=== PATIENT | male | born 1955 | race Caucasian/White ===

== ENCOUNTER 2022-07-01 13:28 | Inpatient (IN) | payer MEDICARE, SELFPAY ==
[2022-07-01] MEDS ORDERED: Ondansetron ODT 4 MG TAB PO PRN (19:15)
[2022-07-01] MEDS ORDERED: Lorazepam 2 MG/ML VIAL IM PRN (19:15)
[2022-07-01] MEDS ORDERED: Electrolyte Replacement Protocol 1 EACH FS SCH (19:15)
[2022-07-01] MEDS ORDERED: Lorazepam 1 MG TAB PO PRN (19:15)
[2022-07-01] MEDS ORDERED: Acetaminophen 325 MG TAB PO PRN (19:16)
[2022-07-01] MEDS ORDERED: HYDROcodone/Acetaminophen 5/325 mg Tablet PO PRN (19:16)
[2022-07-01] MEDS ORDERED: Nicotine 21 MG PATCH TD SCH (19:30)
[2022-07-01] MEDS: Thiamine HCl 200 MG/2 ML VIAL SLOW IVP SCH (20:16)
[2022-07-01] MEDS: Lorazepam 1 MG TAB PO SCH (20:20)
[2022-07-01] MEDS: Famotidine 20 MG TAB PO SCH (20:20)
[2022-07-01 20:33] LABS: #Eosinphils 0.1 thou/uL (0.0-0.7); #Lymphocytes 1.9 thou/uL (1.20-3.40); #Monocytes 0.6 thou/uL (0.11-0.59); #Neutrophils 4.1 thou/uL (1.40-6.50); %Basophils 0.5 % (0.0-1.0); %Eosinophils 1.3 % (0.0-10.0); %Lymphocytes 27.9 % (21.0-51.0); %Monocytes 8.7 % (0.0-10.0); %Neutrophils 61.6 % (42.0-75.0); Hemoglobin 13.4 g/dL (14.0-18.0); Mean Corpuscular HGB CONC 33.7 g/dL (32.0-36.0); Mean Corpuscular Hemoglobin 33.5 pg (27.0-31.0); Mean Corpuscular Volume 99.5 fl (78.0-98.0); Mean Platelet Volume 7.4 fL (7.4-10.4); Platelet Count 198 10x3/uL (130-400); RBC Distribution Width 12.3 % (11.5-14.5); Red Blood Cell (RBC) Count 3.98 mill/uL (4.70-6.10); White Blood Cell (WBC) Count 6.7 10x3/uL (4.8-10.8)
[2022-07-01 20:46] LABS: ALT (SGPT) 8 U/L (8-55); AST (SGOT) 11 U/L (5-34); Albumin 3.9 g/dL (3.4-4.8); Alkaline Phosphatase 44 U/L (40-110); Anion Gap 11 mmol/L (10-20); BUN (Urea Nitrogen) 14 mg/dL (8.4-25.7); Bilirubin, Direct 0.5 mg/dL (0.1-0.3); Bilirubin, Total 1.5 mg/dL (0.2-1.2); Calc. Creatinine Clearance 0 mL/min (70-130); Calcium 9.1 mg/dL (7.8-10.44); Carbon Dioxide 25 mmol/L (23-31); Chloride 103 mmol/L (98-107); Estimated GFR 91; Globulin 2.6 g/dL (2.4-3.5); Glucose 167 mg/dL (80-115); Magnesium 1.9 mg/dL (1.6-2.6); Phosphorus 3.3 mg/dL (2.3-4.7); Potassium 3.8 mmol/L (3.5-5.1); Protein, Total 6.5 g/dL (5.8-8.1); Sodium 135 mmol/L (136-145)
[2022-07-01] MEDS ORDERED: Amlodipine 5 MG TAB PO SCH (21:00)
[2022-07-01] MEDS ORDERED: Atorvastatin Calcium 20 MG TAB PO SCH (21:00)
[2022-07-01 21:25] VITALS: BMI 19.8
[2022-07-01 22:49] LABS: Syphilis Antibody Nonreactive (Nonreactive); Syphilis Antibody Index 0.06 S/CO (<1.00 Non-Reactive)
[2022-07-02] MEDS: Lorazepam 1 MG TAB PO SCH ×3 (01:59→13:13)
[2022-07-02 05:32] LABS: #Eosinphils 0.1 thou/uL (0.0-0.7); #Lymphocytes 1.6 thou/uL (1.20-3.40); #Monocytes 0.6 thou/uL (0.11-0.59); #Neutrophils 3.7 thou/uL (1.40-6.50); %Basophils 0.6 % (0.0-1.0); %Eosinophils 1.5 % (0.0-10.0); %Monocytes 9.5 % (0.0-10.0); %Neutrophils 61.5 % (42.0-75.0); Hemoglobin 13.5 g/dL (14.0-18.0); Mean Corpuscular HGB CONC 33.6 g/dL (32.0-36.0); Mean Corpuscular Hemoglobin 33.2 pg (27.0-31.0); Mean Corpuscular Volume 98.7 fl (78.0-98.0); Mean Platelet Volume 7.1 fL (7.4-10.4); Platelet Count 188 10x3/uL (130-400); RBC Distribution Width 12.2 % (11.5-14.5); Red Blood Cell (RBC) Count 4.07 mill/uL (4.70-6.10)
[2022-07-02 06:26] LABS: ALT (SGPT) 9 U/L (8-55); AST (SGOT) 14 U/L (5-34); Albumin 3.7 g/dL (3.4-4.8); Alkaline Phosphatase 43 U/L (40-110); Anion Gap 14 mmol/L (10-20); BUN (Urea Nitrogen) 17 mg/dL (8.4-25.7); Bilirubin, Total 1.6 mg/dL (0.2-1.2); Calc. Creatinine Clearance 77 mL/min (70-130); Carbon Dioxide 22 mmol/L (23-31); Cardiac Risk 3.9 (Less than 4.5); Chloride 104 mmol/L (98-107); Cholesterol 200 mg/dl (< 200 Desired); Estimated GFR 97; Globulin 2.4 g/dL (2.4-3.5); Glucose 75 mg/dL (80-115); HDL Cholesterol 51 mg/dL (>60 Neg Risk); LDL Cholesterol, Calculated 130 mg/dL; Protein, Total 6.1 g/dL (5.8-8.1); Sodium 136 mmol/L (136-145); Triglycerides 93 mg/dL (Less than 150)
[2022-07-02] MEDS: Aspirin 81 mg Enteric Coated Tablet PO SCH (09:18)
[2022-07-02] MEDS: Lisinopril 10 MG TAB PO SCH (09:18)
[2022-07-02] MEDS: Folic Acid 1 MG TAB PO SCH (09:18)
[2022-07-02] MEDS: Multivit, Therapeutic 1 TAB PO SCH (09:18)
[2022-07-02] MEDS: Famotidine 20 MG TAB PO SCH ×2 (09:19→21:31)
[2022-07-02] MEDS: Thiamine HCl 200 MG/2 ML VIAL SLOW IVP SCH (18:26)
[2022-07-02] MEDS ORDERED: Labetalol HCl 100 MG/20 ML VIAL SLOW IVP PRN (18:57)
[2022-07-02] MEDS ORDERED: Lorazepam 1 MG TAB PO PRN (19:15)
[2022-07-02] MEDS ORDERED: Atorvastatin Calcium 40 MG TAB PO SCH (21:00)
[2022-07-02] MEDS: Heparin 5,000 UNITS/ML VIAL SC SCH (21:31)
[2022-07-03 05:42] LABS: #Eosinphils 0.1 thou/uL (0.0-0.7); #Lymphocytes 1.7 thou/uL (1.20-3.40); #Monocytes 0.5 thou/uL (0.11-0.59); #Neutrophils 3.7 thou/uL (1.40-6.50); %Basophils 0.6 % (0.0-1.0); %Eosinophils 2.2 % (0.0-10.0); %Monocytes 8.3 % (0.0-10.0); Hemoglobin 12.9 g/dL (14.0-18.0); Mean Corpuscular HGB CONC 33.2 g/dL (32.0-36.0); Mean Corpuscular Hemoglobin 33.3 pg (27.0-31.0); Mean Platelet Volume 7.2 fL (7.4-10.4); Platelet Count 183 10x3/uL (130-400); RBC Distribution Width 12.1 % (11.5-14.5); Red Blood Cell (RBC) Count 3.88 mill/uL (4.70-6.10)
[2022-07-03 06:05] LABS: ALT (SGPT) Less than 7 U/L (8-55); AST (SGOT) 12 U/L (5-34); Albumin 3.7 g/dL (3.4-4.8); Alkaline Phosphatase 39 U/L (40-110); Anion Gap 10 mmol/L (10-20); BUN (Urea Nitrogen) 24 mg/dL (8.4-25.7); Bilirubin, Total 0.9 mg/dL (0.2-1.2); Calc. Creatinine Clearance 63 mL/min (70-130); Calcium 8.9 mg/dL (7.8-10.44); Carbon Dioxide 26 mmol/L (23-31); Chloride 104 mmol/L (98-107); Estimated GFR 84; Globulin 2.4 g/dL (2.4-3.5); Glucose 87 mg/dL (80-115); Magnesium 2.1 mg/dL (1.6-2.6); Phosphorus 3.9 mg/dL (2.3-4.7); Potassium 4.2 mmol/L (3.5-5.1); Protein, Total 6.1 g/dL (5.8-8.1); Sodium 136 mmol/L (136-145)
[2022-07-03] MEDS ORDERED: Cyanocobalamin (Vitamin B-12) 1,000 MCG TAB PO SCH (09:00)
[2022-07-03] MEDS: Aspirin 81 mg Enteric Coated Tablet PO SCH (09:24)
[2022-07-03] MEDS: Folic Acid 1 MG TAB PO SCH (09:24)
[2022-07-03] MEDS: Famotidine 20 MG TAB PO SCH (09:24)
[2022-07-03] MEDS: Lisinopril 10 MG TAB PO SCH (09:24)
[2022-07-03] MEDS: Heparin 5,000 UNITS/ML VIAL SC SCH (09:25)
[2022-07-03] MEDS: Multivit, Therapeutic 1 TAB PO SCH (09:25)
[2022-07-03] MEDS ORDERED: Amlodipine 10 MG TAB PO SCH (11:30)
[2022-07-03 11:38] VITALS: BP 179/87
[2022-07-03 11:48] VITALS: TEMP 98.3
[2022-07-03] MEDS ORDERED: Lorazepam 1 MG TAB PO PRN (19:15)
[2022-07-03] MEDS ORDERED: Lorazepam 0.5 MG TAB PO SCH (19:15)
[2022-07-04] MEDS ORDERED: Amlodipine 5 MG TAB PO SCH (09:00)
[2022-07-04] MEDS ORDERED: Lorazepam 0.5 MG TAB PO PRN (19:15)
[2022-07-04] MEDS ORDERED: Thiamine 100 MG TAB PO SCH (19:15)
== END 2022-07-03 14:36 | disposition left against medical advice (07) | DRG 66 ==
LOC: NEURO 18:18 → OBSVTOIN 19:25
PROVIDERS: ADMIT Internal Medicine; ATTEND Internal Medicine
DX: I63.89 Other cerebral infarction (principal); Z20.822 Contact with and (suspected) exposure to COVID-19; I10 Essential (primary) hypertension; E78.5 Hyperlipidemia, unspecified; F17.210 Nicotine dependence, cigarettes, uncomplicated; F10.20 Alcohol dependence, uncomplicated; D64.9 Anemia, unspecified; I65.21 Occlusion and stenosis of right carotid artery; Z86.73 Personal history of transient ischemic attack (TIA), and cerebral infarction without residual deficits; Z71.6 Tobacco abuse counseling
CPT/HCPCS: 36415; 70551; 80053; 80061; 82248; 83735; 84100; 84443; 85025; 86780; 93306; 93880; J1644; J3411; U0003; U0005